=== PATIENT | male | born 2005 | race Caucasian/White ===

== ENCOUNTER 2024-09-20 15:53 | Emergency (ER) | payer MEDICAID, SELFPAY ==
--- NOTE | ~2024-09-20 | XR_ITS ---
CLINICAL HISTORY: Fall 3 view right hand Comparison: None provided Findings: Bones intact. No dislocations. No erosions. No radiopaque foreign body. IMPRESSION: 1. No acute findings This document has been electronically signed by: Soo Bal MD on 09/20/2024 18:07:51
--- NOTE | ~2024-09-20 | CT_ITS ---
CLINICAL HISTORY: trauma CT abdomen and pelvis with contrast Comparison: None provided Findings: There is motion artifact limiting evaluation. No consolidation or effusion. The gallbladder and solid organs are within normal limits given motion artifact. No bowel obstruction or pneumoperitoneum. Pelvic contents unremarkable. Nondisplaced fracture of the right transverse process of L3. IMPRESSION: Nondisplaced fracture of the right L3 transverse process. No other definite acute findings given limitations of motion artifact. This document has been electronically signed by: Soo Bal MD on 09/20/2024 18:48:01
--- NOTE | ~2024-09-20 | CT_ITS ---
CLINICAL HISTORY: facial injury CT maxillofacial without contrast Comparison: None provided Findings: Minimally displaced fracture of the left nasal bone. Temporomandibular joints are intact. Mild mucosal thickening in the bilateral maxillary sinuses and right frontal sinus. Orbits normal. Visualized intracranial contents are within normal limits. No foreign bodies. IMPRESSION: 1. Minimally displaced left nasal bone fracture. This document has been electronically signed by: Soo Bal MD on 09/20/2024 18:53:43
--- NOTE | ~2024-09-20 | CT_ITS ---
CLINICAL HISTORY: trauma CT chest with contrast Comparison: None provided Findings: The heart is normal size. The visualized thyroid and mediastinum are unremarkable. The lungs are clear. The upper abdomen is unremarkable. No acute fractures. IMPRESSION: 1. Unremarkable chest CT. This document has been electronically signed by: Soo Bal MD on 09/20/2024 18:42:31
--- NOTE | ~2024-09-20 | XR_ITS ---
CLINICAL HISTORY: Fall --- Additional Notes or Special Instructions: busy [id number] 3 view left hand Comparison: None provided Findings: No fractures or dislocations. No erosions. No radiopaque foreign body. IMPRESSION: 1. No acute findings This document has been electronically signed by: Soo Bal MD on 09/20/2024 18:08:06
--- NOTE | ~2024-09-20 | CT_ITS ---
CLINICAL HISTORY: fall CT cervical spine without contrast Comparison: None provided Findings: Straightening of the cervical spine is likely positional. No acute fractures or dislocations. No acute findings on limited view of the intracranial contents. Soft tissues of the neck are normal. Lung apices are clear. IMPRESSION: No acute findings. This document has been electronically signed by: Soo Bal MD on 09/20/2024 18:54:46
--- NOTE | ~2024-09-20 | CT_ITS ---
CLINICAL HISTORY: fall CT head without contrast Comparison: None provided Findings: No intra-axial mass, midline shift, hydrocephalus, or acute hemorrhage. Dudley-white matter differentiation is preserved. Mild mucosal thickening in the maxillary sinuses and right frontal sinus. The orbits are within normal limits. No skull fracture. IMPRESSION: 1. No acute intracranial findings. This document has been electronically signed by: Soo Bal MD on 09/20/2024 18:57:13
[2024-09-20 15:58] VITALS: BP 122/66; PULSE 78; RESP 19; TEMP 36.6; O2SAT 99; BMI 17.9
[2024-09-20 16:14] LABS: MANUAL DIFF FLAG NO
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
[2024-09-20 16:16] LABS: Hematocrit 43.1 % (42.0-52.0); Hemoglobin 14.9 g/dl (14.0-18.0); Imm Gran Abs Auto 0.06 X10*3/uL (0.00-0.03); Imm Gran Pct Auto 0.6 % (0.0-0.4); Lymphocytes Absolute Auto 2.6 X10*3/uL (1.2-4.9); Mean Corpuscular HGB Conc 34.6 g/dl (31.0-36.0); Mean Corpuscular Hemoglobin 30.1 pg (27.0-33.0); Mean Corpuscular Volume 87.1 fL (80.0-98.0); NRBC Abs Auto 0.000 X10*3/uL (0.0-0.012); NRBC Pct Auto 0.0 /100WBC (0.0-0.2); Platelet Count 283 X10*3/uL (160-400); Red Blood Count 4.95 X10*6/uL (4.60-5.80); White Blood Count 10.4 X10*3/uL (4.8-10.8)
[2024-09-20 16:18] VITALS: BP 108/69; PULSE 75; RESP 16; TEMP 36.6; O2SAT 99
[2024-09-20 16:25] LABS: Glucose, Whole Blood 98 mg/dL (60-115)
[2024-09-20] MEDS: Diphth,Pertus(ACell),Tet Adult 0.5 ML SYRINGE IM (16:28)
--- OUTSIDE RECORDS SUMMARY | 2024-09-20 16:28 | XMS_ITS | Encounter Summary ---
Author Organization [employer] Address [address] [facility] [address] [place] [address] Care Team Providers Care Surgical Asst Name Role Phone Zeinab Willett MD Primary Care Provider [phone] Claudette Ascencio NP Primary Care Provider [phone] Yuliya Almaraz [facility] Primary Care Provider [phone] Jaqueline Garber BUILDING REPAIR MAINTENANCE SUPERVISOR Primary Care Provider [phone] Encounter Details Date Type Department Care Team (Late st Contact Info) Description 05/30/2022 Abstract [facility] [address] [place] [address] Natalia Martinez, DMD Social History Tobacco Use Types Packs/Day Years Used Date Smoking Tobacco: Never Alcohol Use Standard Drinks/Week Comments Never 0 (1 standard drink = 0.6 oz pur e alcohol) Depression Answer Date Recorded Patient Health Questionnaire-9 Score 3 05/20/2022 Depression Answer Date Recorded Patient Health Questionnaire-2 Score 1 05/20/2022 Sex and Gender Information Value Date Recorded Sex Assigned at Male 01/17/2022 10:22 AM EDT Legal Sex Male 10:22 AM EDT Gender Identity Male 01/17/2022 10:22 AM EDT Sexual Orientation Straight 01/17/2022 10 :22 AM EDT COVID-19 Exposure Response Date Recorded In the last 10 days, have yo u been in contact with someone who was confirmed or suspected to have Coronavirus/COVID-19? No / Unsure 05/20/2022 2:24 PM EST documented as of this encounter Plan of Treatment Not on file documented as of this encounter Procedures Procedure Name Priority Date/Time Associated Diagnosis Comments 31 O COMPOSITE FILLING Routine 06/23/2020 12:00 AM EDT 18 O COMPOSITE FILLING Routine 06/23/2020 12:00 AM EDT 14 LO COMPOSITE FILLING Routine 06/23/2020 12:00 AM EDT 3 LO AMALGAM FILLING Routine 05/09/2019 12:00 AM EST 15 O SEALANT - PER TOOTH Routine 05/22/2018 12:00 AM EST 2 O SEALANT - PER TOOTH Routine 05/22/2018 12:00 AM EST 21 O SEALANT - PER TOOTH Routine 07/27/2016 12:00 AM EDT H I SEALANT - PER TOOTH Routine 07/27/2016 12:00 AM EDT 13 O SEALANT - PER TOOTH Routine 07/27/2016 12:00 AM EDT 5 O SEALANT - PER TOOTH Routine 07/27/2016 12:00 AM EDT 4 O SEALANT - PER TOOTH Routine 07/27/2016 12:00 AM EDT 12 O COMPOSITE FILLING Routine 07/27/2016 12:00 AM EDT 19 O AMALGAM FILLING Routine 09/01/2015 12:00 AM EDT 30 O AMALGAM FILLING Routine 09/01/2015 12:00 AM EDT documented in this encounter Visit Diagnoses Not on filedocumented in this encounter Additional Health Concerns Assessment Noted Time PHQ-9 Depression Total Score: 3 05/21/19 23 3:56 PM EST documented as of this encounter Care Teams Surgical Asst Relationship Specialty Start Date End Date Zeinab Willett MD [address] [place] [id number] PCP - General Pediatrics 05/11/15 05/15/23 Claudette Ascencio NP [address] [place] [id number] PCP - General Family Medicine 05/16/23 05/17/23 Yuliya Almaraz FNP [address] [place] [id number] PCP - General Family Medicine 05/18/23 09/17/23 Jaqueline Garber NP [address] [place] [address] PCP - General Family Medicine 09/18/23 documented as of this encounter
[2024-09-20 16:36] LABS: Alanine Aminotransferase 33 U/L (0-40); Albumin Level 5.0 g/dL (3.5-5.0); Alkaline Phosphatase 88 U/L (39-117); Anion Gap 15 (12-20); Aspartate Amino Transferase 52 U/L (5-37); Blood Urea Nitrogen 13 mg/dL (9-16); Calcium 9.2 mg/dL (8.4-10.2); Carbon Dioxide 28 mmol/L (22-29); Chloride 104 mmol/L (96-108); Creatinine Clr Calc Pharmacy 84.2; Estimated Glomerular Filt Rate > 60; Potassium 3.7 mmol/L (3.3-5.1); Sodium 143 mmol/L (135-145); Total Protein 7.8 g/dL (6.5-8.0)
[2024-09-20] MEDS: iohexoL 350 MG/ML 100 ML INFUS..BTL 85 ML IV (16:58)
[2024-09-20] MEDS: Lidocaine HCl 1 % MPF 2 ML VIAL INFILTRATI (17:32)
[2024-09-20 19:30] VITALS: BP 112/74; PULSE 76; RESP 16; TEMP 37.2; O2SAT 97
[2024-09-20] MEDS: oxyCODONE HCl Immed Release 5 MG TABLET 10 MG PO (19:49)
[2024-09-20 19:57] VITALS: BP 112/74; PULSE 76; RESP 16; TEMP 37.2; O2SAT 97
== END 2024-09-20 19:59 | disposition home or self-care (01) ==
PROVIDERS: Emergency Medicine Emergency Medical Services; Physician Assistant Medical; Emergency Provider Internal Medicine
DX: S00.81XA Abrasion of other part of head, initial encounter (principal); S32.039A Unspecified fracture of third lumbar vertebra, initial encounter for closed fracture; S02.2XXA Fracture of nasal bones, initial encounter for closed fracture; R11.0 Nausea; R51.9 Headache, unspecified; R10.2 Pelvic and perineal pain; M79.642 Pain in left hand; M79.641 Pain in right hand; M54.2 Cervicalgia; M54.6 Pain in thoracic spine; V28.49XA Other motorcycle driver injured in noncollision transport accident in traffic accident, initial encounter; Y93.9 Activity, unspecified; Y92.410 Unspecified street and highway as the place of occurrence of the external cause; Y99.8 Other external cause status; Z51.81 Encounter for therapeutic drug level monitoring; Z79.899 Other long term (current) drug therapy; Z23 Encounter for immunization
CPT/HCPCS: 12013; 36415; 70450; 70486; 71260; 72125; 73130; 74177; 80053; 80307; 82947; 85025; 90471; 90715; 96374; 96375; 99284; J1885; J2003; J2405; Q9967

== ENCOUNTER → 2024-09-20 15:55 | Outpatient (BNV) | payer MEDICAID, SELFPAY | PROVIDERS: Emergency Provider Emergency Medicine Emergency Medical Services; Visit Provider Radiology Diagnostic Radiology | DX: S32.039A Unspecified fracture of third lumbar vertebra, initial encounter for closed fracture (principal); S09.90XA Unspecified injury of head, initial encounter; S09.93XA Unspecified injury of face, initial encounter; M79.641 Pain in right hand; M79.642 Pain in left hand; V89.2XXA Person injured in unspecified motor-vehicle accident, traffic, initial encounter | CPT/HCPCS: 70450; 70486; 71260; 72125; 73130; 74177 ==